=== PATIENT | male | born 1985 | race Caucasian/White ===

== ENCOUNTER 2016-11-13 16:31 | Emergency (ER) | payer OTHER ==
[2016-11-13 16:55] VITALS: BP 155/100
[2016-11-13] MEDS ORDERED: CEPH-264 PO (17:23)
--- NOTE | 2016-11-13 17:23 | PHYS DOC ---
Past History Past Medical History: Abscess Past Surgical History: No Surgical History Smoking: Cigarettes Alcohol Use: None Drug Use: None Adult General Chief Complaint Chief Complaint: SKIN PROBLEM HPI HPI Patient is a 31 year old male who presents with abdominal rash. The patient reports 5 day history of possible insect bite to lower right abdominal wall associated with spreading erythema to the right lower quadrant. Denies any abscess. Denies fevers/chills, nausea/vomiting. Did not see any spider or other insect. Previously healthy. Review of Systems Review of Systems Constitutional: Denies fever or chills HENT: Denies nasal congestion or sore throat Respiratory: Denies cough or shortness of breath Cardiovascular: Denies chest pain GI: Denies abdominal pain, nausea, vomiting Musculoskeletal: Denies back pain or joint pain Integument: Reports skin erythema Neurologic: Denies headache Allergies Allergies Allergies Coded Allergies Type Severity Reaction Last Updated Verified No Known Drug Allergies 07/09/13 No Physical Exam Physical Exam Constitutional: obese, no acute distress, non-toxic appearance. HENT: Normocephalic, atraumatic, bilateral external ears normal, oropharynx moist, nose normal. Eyes: conjunctiva normal, no discharge. Cardiovascular: no edema. Lungs & Thorax: no respiratory distress. Abdomen: soft, nontender, nondistended. over RLQ there is an approximately 10 cm x 15 cm area of erythema & warmth. there is an area about 2 cm in diameter with ecchymosis without skin necrosis, & a tiny blister. no fluctuance or induration. Skin: cellulitis to abdominal wall as above Extremities: No deformity Neurologic: Alert and oriented X 3, no focal deficits noted. Psychologic: Affect normal, judgement normal, mood normal. Current Patient Data Vital Signs Vital Signs Date Time Temp Pulse Resp B/P (MAP) Pulse Ox O2 Delivery O2 Flow Rate FiO2 11/13/16 16:55 98.6 105 22 97 Room Air EKG EKG [] Radiology/Procedures Radiology/Procedures [] Course & Med Decision Making Course & Med Decision Making Pertinent Labs and Imaging studies reviewed. (See chart for details) The patient presents with abdominal wall cellulitis. Could possibly be due to insect bite though suspect more likely staph. No systemic symptoms, no abdominal tenderness with palpation. Will prescribe bactrim. Follow up with PCP in 2 days for wound check. Come back for abscess formation, high fever, spreading erythema/warmth/swelling, any otherwise worsening condition. Discharged home in stable condition. [] Dragon Disclaimer Dragon Disclaimer This chart was dictated in whole or in part using Voice Recognition software in a busy, high-work load, and often noisy Emergency Department environment. It may contain unintended and wholly unrecognized errors or omissions. Departure Departure: Impression: Primary Impression: Cellulitis Disposition: 01 HOME, SELF-CARE Condition: STABLE Referrals: IVETTE GARDUNO MD (PCP) Patient Instructions: Cellulitis, [id number] Additional Instructions: You were seen in the emergency department today for skin infection. This could be related to an insect bite. Please take the prescribed antibiotic. Take Tylenol or ibuprofen as needed for pain. Follow-up in 2 days for wound check with primary care physician. Return to the emergency department for high fever, spreading redness/warmth/swelling, collection of pus over this area, any otherwise worsening condition. Scripts Cephalexin (KEFLEX) 500 Mg Capsule 1 CAP PO QID for 7 Days, #28 CAP Prov: GAVIN PUCKETT MD 11/13/16 GAVIN PUCKETT MD Nov 13, 2016 17:23
== END 2016-11-13 17:31 | disposition home or self-care (01) ==
LOC: ER 16:31
DX: L03.311 Cellulitis of abdominal wall (principal); F17.210 Nicotine dependence, cigarettes, uncomplicated
CPT/HCPCS: 99283

== ENCOUNTER 2017-12-28 08:46 | Emergency (ER) | payer OTHER ==
[~2017-12-28] VITALS: Ht 177.8 cm; Wt 122.0 kg
[2017-12-28 08:46] VITALS: BP 128/82
[~2017-12-28 08:46] MED LIST: CEPH-264 PO
--- NOTE | 2017-12-28 09:23 | RAD ---
Examination: 2 views of the right shoulder HISTORY: History of fall, right shoulder pain COMPARISON: None available. FINDINGS: The humerus head is within the glenoid. There is no acute fracture or dislocation identified. IMPRESSION: No acute osseous findings. Electronically signed by: Avery Hansne MD (12/28/2017 9:20 AM) [facility]
--- NOTE | 2017-12-28 12:56 | ED.ADGEN ---
Past History Past Medical History: Abscess, Hypertension Past Surgical History: Appendectomy Smoking: Cigarettes Alcohol Use: Occasionally Drug Use: None Adult General Chief Complaint Chief Complaint Right shoulder pain HPI HPI Patient is a 32-year-old male presents with right shoulder pain after lifting the shower and landing directly on right anterior shoulder 2 days ago. Patient reports soft tissue tenderness pain with range of motion. No obvious deformity, clicking, or bruising. No medications or therapy's taken prior to ED arrival.[] Review of Systems Review of Systems Review symptoms as per history of present illness. All other systems were reviewed and found to be within normal limits, except as documented in this note. Allergies Allergies Allergies Coded Allergies Type Severity Reaction Last Updated Verified No Known Drug Allergies 07/09/13 No Physical Exam Physical Exam Constitutional: Well developed, well nourished, no acute distress, non-toxic appearance. [ Extremities: Shoulder, no deformity, swelling, bruising. Anterior deltoid tenderness to palpation. Minimal pain with active range of motion.[] Neurologic: Alert and oriented X 3, and upper extremity normal motor function, normal sensory function, no focal deficits noted. [] Psychologic: Affect normal, judgement normal, mood normal. [] Current Patient Data Vital Signs Vital Signs Date Time Temp Pulse Resp B/P (MAP) Pulse Ox O2 Delivery O2 Flow Rate FiO2 12/28/17 08:46 Room Air 12/28/17 08:46 97.7 108 20 98 EKG EKG [] Radiology/Procedures Radiology/Procedures [Right shoulder x-ray: No obvious displaced fracture per radiology report] Course & Med Decision Making Course & Med Decision Making Pertinent Labs and Imaging studies reviewed. (See chart for details) [Recommend supportive care] Final Impression Final Impression [#1 right shoulder injury] Dragon Disclaimer Dragon Disclaimer This electronic medical record was generated, in whole or in part, using a voice recognition dictation system. MIKAELA ALEXANDER DO Dec 28, 2017 12:56
== END 2017-12-28 09:30 | disposition home or self-care (01) ==
LOC: ER 08:46
DX: S40.011A Contusion of right shoulder, initial encounter (principal); I10 Essential (primary) hypertension; F17.210 Nicotine dependence, cigarettes, uncomplicated; W18.30XA Fall on same level, unspecified, initial encounter; Y93.89 Activity, other specified; Y92.89 Other specified places as the place of occurrence of the external cause; Y99.8 Other external cause status
CPT/HCPCS: 73030; 99284

== ENCOUNTER 2019-08-30 12:23 | Emergency (ER) | payer OTHER ==
[~2019-08-30] VITALS: Ht 177.8 cm; Wt 121.5 kg
--- NOTE | 2019-08-30 12:35 | PHYS DOC ---
Past History Past Medical History: Abscess, Hypertension Past Surgical History: Appendectomy Smoking: Cigarettes Alcohol Use: Occasionally Drug Use: None General Adult EDM: Chief Complaint: KNEE INJURY HPI: HPI: Patient is a 34-year-old male who presents to the emergency department for evaluation. He states that he was playing football yesterday, when he jumped up to catch a ball and landed awkwardly, injuring his left knee. He also complains of some pain in the lateral aspect of his left foot. He is able to ambulate but is limping. He denies any other injuries, numbness, weakness. He states he does have a history of a prior foot injury, and had "dropfoot" from that injury. Review of Systems: Review of Systems: Constitutional: Denies fever or chills HENT: Denies nasal congestion or sore throat Musculoskeletal: Denies back pain or joint pain, other than as noted in the HPI Integument: Denies rash Neurologic: Denies headache, focal weakness or sensory changes Heart Score: Risk Factors: Risk Factors: DM, Current or recent (<one month) smoker, HTN, HLP, family history of CAD, obesity. Risk Scores: Score 0 - 3: 2.5% MACE over next 6 weeks - Discharge Home Score 4 - 6: 20.3% MACE over next 6 weeks - Admit for Clinical Observation Score 7 - 10: 72.7% MACE over next 6 weeks - Early Invasive Strategies Allergies: Allergies: Allergies Coded Allergies Type Severity Reaction Last Updated Verified No Known Drug Allergies 07/09/13 No Physical Exam: PE: PHYSICAL EXAM: HEENT: Atruamatic NECK: Supple, normal ROM, non-tender. CARDIAC: Regular Rate and Rhythm LUNGS: Clear Bilaterally EXTREMITIES: There is mild soft tissue swelling noted on the left knee, with some tenderness to palpation on the lateral aspect of the knee. There is no ligamentous laxity, but there is discomfort with strain of the lateral collateral ligament. Flexion and extension of the knee are intact, the patient ambulates with an antalgic gait. There is mild tenderness to palpation to the lateral aspect of the left foot, without any significant soft tissue swelling or gross deformity. Distal PMS is intact. The remainder the extremities are unremarkable and atraumatic. EKG: EKG: [] Radiology/Procedures: Radiology/Procedures: PROCEDURE: KNEE LEFT 3V Study: 1. CR FOOT LEFT 3V 2. CR KNEE LEFT 3V Indication: Injury with pain. Comparison: None. Findings: Left knee: No acute fracture. Knee alignment is maintained. No significant femorotibial compartment joint space narrowing. Mild undulation at the lateral femoral condyle terminal sulcus but not definitive of an impaction fracture. Rounded focus of ossification projecting lateral to the joint space may be outside knee joint as opposed to a loose body. Left foot: No displaced fracture is identified or traumatic malalignment noting the absence of weightbearing. Small Achilles insertion enthesophyte. Impression: Left knee: 1. Knee joint effusion but no definite fracture is seen. There is slight undulation at the lateral femoral condyle terminal sulcus but not deep enough to confirm an impaction fracture. If there is concern for internal derangement eventual nonemergent/outpatient MRI could be considered. Left foot: 1. No acute fracture.[] Course & Med Decision Making: Course & Med Decision Making Pertinent Labs and Imaging studies reviewed. (See chart for details) [] Patient remains stable. I discussed test results, the need for close orthopedic follow-up for further evaluation and possible MRI to exclude ligamentous injury, and return precautions. Dragon Disclaimer: Dragon Disclaimer: This electronic medical record was generated, in whole or in part, using a voice recognition dictation system. Departure Departure: Impression: Primary Impression: Internal derangement of knee Additional Impression: Foot sprain Disposition: 01 HOME/RESIDENCE PRIOR TO ADM Condition: STABLE Referrals: RAJ SOW MD (PCP) Patient Instructions: Knee Immobilization, Knee Sprain Additional Instructions: Follow-up with orthopedics at [facility], call [phone] to schedule an appointment. It is important that you obtain timely follow-up as it is possible and suspected that you have a ligamentous injury and possible ligamentous tear, which would require further evaluation. Please contact orthopedics for follow-up. Tylenol and/or Motrin as needed for pain. Justification of Admission: Justification of Admission: Justification of Admission Dx: N/A NARCISO ALMANZA MD Aug 30, 2019 12:35
--- NOTE | 2019-08-30 13:06 | RAD ---
Study: 1. CR FOOT LEFT 3V 2. CR KNEE LEFT 3V Indication: Injury with pain. Comparison: None. Findings: Left knee: No acute fracture. Knee alignment is maintained. No significant femorotibial compartment joint space narrowing. Mild undulation at the lateral femoral condyle terminal sulcus but not definitive of an impaction fracture. Rounded focus of ossification projecting lateral to the joint space may be outside knee joint as opposed to a loose body. Left foot: No displaced fracture is identified or traumatic malalignment noting the absence of weightbearing. Small Achilles insertion enthesophyte. Impression: Left knee: 1. Knee joint effusion but no definite fracture is seen. There is slight undulation at the lateral femoral condyle terminal sulcus but not deep enough to confirm an impaction fracture. If there is concern for internal derangement eventual nonemergent/outpatient MRI could be considered. Left foot: 1. No acute fracture. Electronically signed by: PRISCA ROB MD (08/30/2019 1:03 PM) [id number]
[2019-08-30 13:22] VITALS: BP 148/90
== END 2019-08-30 13:23 | disposition home or self-care (01) ==
LOC: ER 12:23
DX: S93.602A Unspecified sprain of left foot, initial encounter (principal); I10 Essential (primary) hypertension; F17.210 Nicotine dependence, cigarettes, uncomplicated; W18.39XA Other fall on same level, initial encounter; Y93.61 Activity, american tackle football; Y92.89 Other specified places as the place of occurrence of the external cause; Y99.8 Other external cause status
CPT/HCPCS: 29505; 73562; 73630; 99284

== ENCOUNTER 2020-08-04 01:36 | Emergency (ER) | payer OTHER ==
[~2020-08-04] VITALS: Ht 177.8 cm; Wt 127.3 kg
--- NOTE | 2020-08-04 02:18 | RAD ---
XR RT WRIST 3VIEWS, XR FOREARM_RIGHT 2 VIEWS History: Reason: Fall, right wrist and arm pain / Spl. Instructions: / History: Technique: 3 views right wrist and 2 views right forearm Comparison: None. Findings: Right forearm: Normal alignment. No fracture. Posterior forearm soft tissue swelling. Right wrist: Normal alignment. No acute fracture. Chronic fifth metacarpal fracture. Impression: 1. No acute osseous abnormality. 2. Posterior forearm soft tissues swelling. Electronically signed by: Branden Loomis DO (08/04/2020 2:15 AM) [facility]
--- NOTE | 2020-08-04 02:27 | PHYS DOC ---
Past History Past Medical History: Abscess, Hypertension Past Surgical History: Appendectomy Smoking: Cigarettes Alcohol Use: Heavy Drug Use: None General Adult EDM: Chief Complaint: MECHANICAL FALL HPI: HPI: 35-year-old male presents with right forearm pain. The patient was climbing out of the pool when he slipped and struck his posterior forearm against the side, rolled over it back into the water. He has bruising in this location and it is painful. He is concerned about fracture. He has no other complaints at this time. Review of Systems: Review of Systems: Constitutional: Denies fever or chills Eyes: Denies change in visual acuity HENT: Denies nasal congestion or sore throat Respiratory: Denies cough or shortness of breath Cardiovascular: Denies chest pain or edema GI: Denies abdominal pain, nausea, vomiting, bloody stools or diarrhea : Denies dysuria Musculoskeletal: Right forearm pain Integument: Denies rash Neurologic: Denies headache, focal weakness or sensory changes Endocrine: Denies polyuria or polydipsia Lymphatic: Denies swollen glands Psychiatric: Denies depression or anxiety Allergies: Allergies: Allergies Coded Allergies Type Severity Reaction Last Updated Verified No Known Drug Allergies 07/09/13 No Physical Exam: PE: Constitutional: Well developed, well nourished, no acute distress, non-toxic appearance. [] HENT: Normocephalic, atraumatic, bilateral external ears normal, oropharynx moist, no oral exudates, nose normal. [] Eyes: PERRLA, EOMI, conjunctiva normal, no discharge. [] Neck: Normal range of motion, no tenderness, supple, no stridor. [] Cardiovascular:Heart rate regular rhythm, no murmur [] Lungs & Thorax: Bilateral breath sounds clear to auscultation [] Abdomen: Bowel sounds normal, soft, no tenderness, no masses, no pulsatile masses. [] Skin: Warm, dry, no erythema, no rash. [] Back: No tenderness, no CVA tenderness. [] Extremities: Right mid forearm pain, ecchymosis and swelling of the posterior forearm, mild tenderness to palpation. [] Neurologic: Alert and oriented X 3, normal motor function, normal sensory function, no focal deficits noted. [] Psychologic: Affect normal, judgement normal, mood normal. [] EKG: EKG: [] Radiology/Procedures: Radiology/Procedures: [] Impressions: XR RT WRIST 3VIEWS, XR FOREARM_RIGHT 2 VIEWS History: Reason: Fall, right wrist and arm pain / Spl. Instructions: / History: Technique: 3 views right wrist and 2 views right forearm Comparison: None. Findings: Right forearm: Normal alignment. No fracture. Posterior forearm soft tissue swelling. Right wrist: Normal alignment. No acute fracture. Chronic fifth metacarpal fracture. Impression: 1. No acute osseous abnormality. 2. Posterior forearm soft tissues swelling. Electronically signed by: Branden Jonas DO (08/04/2020 2:15 AM) [facility] DICTATED AND SIGNED BY: BRANDEN JONAS DO DATE: 08/04/20212 CC: MIKAELA WALTER DO; RAJ SOW MD ~MTH0 0 Heart Score: C/O Chest Pain: N/A Risk Factors: Risk Factors: DM, Current or recent (<one month) smoker, HTN, HLP, family history of CAD, obesity. Risk Scores: Score 0 - 3: 2.5% MACE over next 6 weeks - Discharge Home Score 4 - 6: 20.3% MACE over next 6 weeks - Admit for Clinical Observation Score 7 - 10: 72.7% MACE over next 6 weeks - Early Invasive Strategies Course & Med Decision Making: Course & Med Decision Making Pertinent Labs and Imaging studies reviewed. (See chart for details) The patient's x-ray is negative for fracture. He appears to have a contusion. I have advised supportive care such as ice, ibuprofen, Tylenol. He is stable for discharge at this time. I will give him today off work. [] Dragon Disclaimer: Dragten Disclaimer: This electronic medical record was generated, in whole or in part, using a voice recognition dictation system. Departure Departure: Impression: Primary Impression: Contusion of right forearm, initial encounter Disposition: HOME / SELF CARE / HOMELESS Condition: STABLE Referrals: RAJ SOW MD (PCP) Patient Instructions: Contusion, [id number] MIKAELA WALTER DO Aug 04, 2020 02:27
[2020-08-04 02:35] VITALS: BP 130/82
== END 2020-08-04 02:37 | disposition home or self-care (01) ==
LOC: ER 01:36
DX: S50.11XA Contusion of right forearm, initial encounter (principal); I10 Essential (primary) hypertension; F17.210 Nicotine dependence, cigarettes, uncomplicated; W17.89XA Other fall from one level to another, initial encounter; Y93.39 Activity, other involving climbing, rappelling and jumping off; Y92.34 Swimming pool (public) as the place of occurrence of the external cause; Y99.8 Other external cause status
CPT/HCPCS: 73090; 73110; 99284-25